=== PATIENT | male | born 1945 | race Caucasian/White ===

== ENCOUNTER → 2022-09-22 13:57 | Outpatient (CLI) | payer OTHER, SELFPAY ==
--- NOTE | 2022-09-22 | DI.ECHO.S_ITS ---
[facility] +---------+ : : [address] : [place] : : : : [id number] : : : : Phone: [phone]---------+ Echocardiogram Report + + :Name: GERMAIN GALVEZ Study Date: 09/22/2022 Height: 72 in : :[facility] ReadingLocation: Weight: 210 lb : : Gender: Male BSA: 2.2 m2 : :: 1945 Age: 77 yrs BP: 138/86 mmHg: :Reason For Study: Coronary Artery Disease : :Ordering Physician: : :DARIN OSORIO Performed By: An Castano : :Referring: DARIN OSORIO : + + Interpretation Summary The left ventricle is normal in size and wall thickness. The ejection fraction is estimated to be 55-60%. The right ventricle is normal in size and function. The aortic valve is not well visualized. There is discrete nodular thickening of the non- coronary cusp. The peak aortic velocity is 2.02 m/sec. The aortic valve mean gradient is 9.0 mmHg. The calculated aortic valve area is 2.0 cm2. There is mild aortic stenosis. There is trace tricuspid regurgitation. The right ventricular systolic pressure is estimated to be at least 35 mmHg based on an estimated right atrial pressure of 8 mm Hg. There is aortic root sclerosis/calcification. Procedure: A two-dimensional transthoracic echocardiogram with color flow and Doppler was performed. The study quality was technically adequate. There has been no significant change since the previous study. The patient was in sinus bradycardia with heart rates between 42-53 bpm during the exam. Left Ventricle: The left ventricle is normal in size and wall thickness. There is no thrombus. The ejection fraction is estimated to be 55-60%. There is basal inferior wall hypokinesis. MV E/A: 1.4 Med Peak E' Freddy: 9.2 cm/sec E/E' med: 12.8. Right Ventricle: The right ventricle is normal in size and function. Atria: The left atrium is mildly dilated. The right atrium is moderately dilated. There is no Doppler evidence for an interatrial shunt. Mitral Valve: There is mild mitral annular calcification. The mitral valve leaflets are mildly calcified. There is trace mitral regurgitation. Aortic Valve: The aortic valve is moderately calcified. The aortic valve is not well visualized. There is discrete nodular thickening of the non- coronary cusp. The peak aortic velocity is 2.02 m/sec. The aortic valve mean gradient is 9.0 mmHg. The calculated aortic valve area is 2.0 cm2. There is mild aortic stenosis. No aortic regurgitation is present. Tricuspid Valve: The tricuspid valve is normal in structure and function. There is trace tricuspid regurgitation. The right ventricular systolic pressure is estimated to be at least 35 mmHg based on an estimated right atrial pressure of 8 mm Hg. Pulmonic Valve: The pulmonic valve is not well visualized. There is no pulmonic valvular regurgitation. Great Vessels: There is aortic root sclerosis/calcification. The aortic root is normal size. The ascending aorta is normal in size. The IVC is of normal diameter and collapses less than 50% with a sniff. This suggests a right atrial pressure of 8 mm Hg. Pericardium/ Pleura There is no pericardial effusion. There is an anterior echo-free space consistent with a fat pad. There is no pleural effusion. MMode/2D Measurements & Calculations LVIDd: 5.3 cm LVOT diam: 1.9 cm LVIDs: 3.8 cm Ao root diam: 3.1 cm FS: 28.3 % asc Aorta Diam: 2.8 cm EPSS: 0.50 cm IVSd: 0.80 cm LVPWd: 0.80 cm LV camacho. diameter/BSA (cm/m^2): 2.4 LV sys. diameter/BSA (cm/m^2): 1.7 LA dimension: 4.3 cm RA long axis: 5.4 cm LA A2 area: 23.4 cm2 RA area: 21.9 cm2 LA A4 area: 21.5 cm2 RA vol: 75.8 ml LA length (vol): 5.4 cm RA : 34.8 ml/m2 LA vol: 79.7 ml IVC diam: 1.8 cm LA vol index: 36.6 ml/m2 RVD1 (basal): 3.9 cm LVLs ap4: 6.7 cm LVLd ap2: 8.6 cm TAPSE_phl: 2.8 cm LVLs ap2: 7.1 cm Doppler Measurements & Calculations Ao V2 max: 202.0 cm/sec LVOT Max Freddy: 146.0 cm/sec Ao V2 mean: 142.0 cm/sec LV V1 max P.5 mmHg Ao max P.0 mmHg LV V1 VTI: 36.6 cm Ao mean P.0 mmHg LAZARA(I,D): 2.0 cm2 Ao V2 VTI: 51.6 cm LAZARA(V,D): 2.0 cm2 sev ratio: 0.71 LAZARA indexed to BSA (cm^2/m^2): 0.92 MV E max freddy: 118.0 cm/sec TR max frdedy: 261.0 cm/sec MV A max freddy: 86.9 cm/sec TR max P.2 mmHg MV E/A: 1.4 PA V2 max: 95.9 cm/sec Med Peak E' Freddy: 9.2 cm/sec PA V2 mean: 68.6 cm/sec E/E' med: 12.8 PA mean P.0 mmHg Lat Peak E' Freddy: 7.1 cm/sec E/E' lat: 16.7 E/e' average: 14.8 MV dec time: 0.21 sec MVA(VTI): 2.4 cm2 MV V2 mean: 59.3 cm/sec SV(LVOT): 103.8 ml MV mean P.0 mmHg MV V2 VTI: 43.4 cm AV VR_phl: 0.72 MV P1/2t-pr_phl: 61.0 msec LAZARA(VTI)/BSA_phl: 0.92 Reading Physician:04:43 PM
== END ==
PROVIDERS: Family Provider Family Medicine; PCP Internal Medicine; Referring Provider Chiropractor; Visit Provider Chiropractor
DX: I35.0 Nonrheumatic aortic (valve) stenosis (principal); I34.81 Nonrheumatic mitral (valve) annulus calcification; I25.10 Atherosclerotic heart disease of native coronary artery without angina pectoris
CPT/HCPCS: 93306